=== PATIENT | male | born 1960 ===

== ENCOUNTER 2019-07-11 16:34 | Emergency (ER) | payer OTHER ==
--- NOTE | 2019-07-11 17:05 | ED ---
Complex/Multi-Sys Presentation - HPI Summary HPI Summary: Patient is a 59 y/o M presenting to the ED for a chief complaint of left anterior chest pain. The chest pain is described as a sharp sensation. Patient states that on 07/08/19 and 07/10/19, patient went outside to smoke a cigarette and had a syncopal episode. Patient fell during both syncopal episodes and currently has loose teeth, ecchymosis to the right hand, abrasions on the left forehead, left thigh pain, and left hip pain. He also reports fever, chills, nasal congestion, and shortness of breath. Initially, he believed he had a cold. Patient denies decreased ROM in the left LE, lightheadedness, dizziness, or headache. PMHx of COPD, DM, HTN, or cardiac problems are denied. Patient denies alcohol use, but admits to smoking 1 ppd of cigarettes. - History Of Current Complaint Chief Complaint: EDTraumaMultiple Hx Obtained From: Patient Onset/Duration: Sudden Onset, Still Present Timing: Constant Severity Currently: Moderate Severity Initially: Moderate Character: Sharp Associated Signs And Symptoms: Positive: Syncope, SOB, Chest Pain - Left anterior, Fever - In vitals, 97.7 F. Negative: Headache - Allergies/Home Medications Allergies/Adverse Reactions: Allergies Allergy/AdvReac Type Severity Reaction Status Date / Time No Known Allergies Allergy Verified 11/17/18 14:27 PMH/Surg Hx/FS Hx/Imm Hx Previously Healthy: Yes Endocrine/Hematology History: Denies: Hx Diabetes Cardiovascular History: Denies: Hx Hypertension, Hx Pacemaker/ICD History: Denies: Hx Renal Disease Sensory History: Denies: Hx Legally Blind, Hx Deafness, Hx Hearing Aid Opthamlomology History: Denies: Hx Legally Blind EENT History: Denies: Hx Deafness Psychiatric History: Denies: Hx Panic Disorder - Surgical History Surgical History: None Surgery Procedure, Year, and Place: DENIES Infectious Disease History: No Infectious Disease History: Denies: Traveled Outside the [place] in Last 30 Days - Family History Known Family History: Negative: Diabetes - Social History Occupation: Unemployed Alcohol Use: None Hx Substance Use: No Substance Use Type: Reports: None Hx Tobacco Use: Yes Smoking Status (MU): Heavy Every Day Tobacco Smoker Type: Cigarettes Amount Used/How Often: 1 ppd Review of Systems Positive: Fever - In vitals, 97.7 F, Chills Positive: Other - Positive nasal congestion and loose teeth Positive: Chest Pain - Left anterior Positive: Shortness Of Breath Positive: Arthralgia - Left hip, Myalgia - Left LE, left thigh, and left-sided facial pain. Negative: Decreased ROM - Left LE Positive: Bruising - Right hand, Other - Positive abrasions on the left forehead Neurological: Other - Negative lightheadedness or dizziness Positive: Syncope - 2 episodes, resolved. Negative: Headache All Other Systems Reviewed And Are Negative: Yes Physical Exam - Summary Physical Exam Summary: Constitutional: Well-developed, Well-nourished, Alert. (-) Distressed Skin: Warm, Dry HENT: Normocephalic. Several left-sided facial contusions, no bony tenderness, right upper front teeth slightly loose but not evulsed. Eyes: Conjunctiva normal Neck: Musculoskeletal ROM normal neck. (-) JVD, (-) Stridor, (-) Tracheal deviation Cardio: Rhythm regular, rate normal, Heart sounds normal; Intact distal pulses; The pedal pulses are 2+ and symmetric. Radial pulses are 2+ and symmetric. (-) Murmur Pulmonary/Chest wall: Effort normal. (-) Respiratory distress, (-) Wheezes, (-) Rales Abd: Soft, (-) tenderness, (-) Distension, (-) Guarding, (-) Rebound Musculoskeletal: (-) Edema. Left thigh tenderness, left lateral chest wall tenderness. Lymph: (-) Cervical adenopathy Neuro: Alert, Oriented x3 Psych: Mood and affect Normal Triage Information Reviewed: Yes Vital Signs On Initial Exam: Initial Vitals Temp Pulse Resp BP Pulse Ox 97.7 F 78 19 116/66 96 07/11/19 16:39 07/11/19 16:39 07/11/19 16:39 07/11/19 16:39 07/11/19 16:39 Vital Signs Reviewed: Yes - [place] Coma Scale Best Eye Response: 4 - Spontaneous Best Motor Response: 6 - Obeys Commands Best Verbal Response: 5 - Oriented Coma Scale Total: 15 Procedures - Sedation Patient Received Moderate/Deep Sedation with Procedure: No Diagnostics - Vital Signs Vital Signs Temp Pulse Resp BP Pulse Ox 07/11/19 16:39 97.7 F 78 19 116/66 96 - Laboratory Result Diagrams: 07/11/19 17:46 07/11/19 17:46 Lab Statement: Any lab studies that have been ordered have been reviewed, and results considered in the medical decision making process. - Radiology Femur X-ray Radiology Interpretation Completed By: ED Physician Summary of Radiographic Findings: Femur X-ray IMPRESSION: no acute disease. Reviewed and interpreted by Dr. Estes, pending official radiology report. - CT Brain CT CT Interpretation Completed By: Radiologist Summary of CT Findings: Brain CT IMPRESSION: 1. No intracranial bleed, suspicious mass, or mass effect. Ventricles appear unremarkable. 2. Left facial injuries not fully visualized here with some pre and postseptal gas seen over the left orbit. Facial bone CT is recommended. 3. Fluid in the left maxillary sinus. Mucoperiosteal thickening elsewhere in the sinuses. Reviewed by Dr. Estes. Cervical CT CT Interpretation Completed By: Radiologist Summary of CT Findings: Cervical Spine CT IMPRESSION: 1. No cervical fracture or subluxation. 2. Straightening of normal cervical lordosis. This can indicate muscle spasm, or be voluntary positioning. Reviewed by Dr. Estes. Chest CT CT Interpretation Completed By: Radiologist Summary of CT Findings: Brain CT IMPRESSION: 1. No intracranial bleed, suspicious mass, or mass effect. Ventricles appear unremarkable. 2. Left facial injuries not fully visualized here with some pre and postseptal gas seen over the left orbit. Facial bone CT is recommended. 3. Fluid in the left maxillary sinus. Mucoperiosteal thickening elsewhere in the sinuses. Reviewed by Dr. Estes. Maxillofacial CT CT Interpretation Completed By: Radiologist Summary of CT Findings: Maxillofacial CT IMPRESSION: 1. Acute fracture left orbital floor with large fragment displaced inferiorly 8 mm. The inferior rectus muscle protrudes inferiorly into the gap and may be functionally entrapped. 2. Preseptal soft tissue swelling and gas overlying the orbit. No postseptal hematoma or gas. 3. Associated blood in the left maxillary sinus. Minimal sinus disease elsewhere. Reviewed by Dr. Estes. Chest/Thorax CTA CT Interpretation Completed By: Radiologist Summary of CT Findings: Chest/Thorax CTA IMPRESSION: 1. No pulmonary embolus. No dissection or aneurysm in the chest. 2. Valvular and moderate coronary artery calcifications. 3. Minimal pericardial effusion. 4. Mild bronchial wall thickening. This may represent underlying inflammation or infection, or be chronic. 5. Slight buckle fractures anteriorly left 3rd 4th and 5th ribs are redemonstrated. 6. 5 mm pulmonary nodule anteriorly left upper lobe. 6 mm additional nodule laterally in the left upper lobe. 7. Severe atherosclerosis in the abdomen. No aneurysm. Reviewed by Dr. Estes. - EKG 16:52 Cardiac Rate: NL - 95 BPM EKG Rhythm: Sinus Rhythm ST Segment: Normal Ectopy: None Summary of EKG Findings: EKG at 16:52 shows normal sinus rhythm with 95 BPM, PVCs and PACs noted, no ischemic changes. Dr. Estes has reviewed and interpreted this EKG. Re-Evaluation - Re-Evaluation First Eval Re-Evaluation Time: 20:40 Change: Unchanged Comment: At 20:40, after discussion with the patient regarding admission, patient states he does not want to be admitted. Second Eval Re-Evaluation Time: 21:29 Change: Unchanged Comment: At 21:29, I discussed the benefits of admission; patient continues to decline admission Complex Multi-Symp Course/Dx Course Of Treatment: Patient is a 59 y/o M presenting to the ED for a chief complaint of left anterior chest pain. The chest pain is described as a sharp sensation. Patient states that on 07/08/19 and 07/10/19, patient went outside to smoke a cigarette and had a syncopal episode. Patient fell during both syncopal episodes and currently has loose teeth, ecchymosis to the right hand, abrasions on the left forehead, left thigh pain, and left hip pain. He also reports fever, chills, nasal congestion, and shortness of breath. Initially, he believed he had a cold. Patient denies decreased ROM in the left LE, lightheadedness, dizziness, or headache. PMHx of COPD, DM, HTN, or cardiac problems are denied. Patient denies alcohol use, but admits to smoking 1 ppd of cigarettes. On exam, several left-sided facial contusions, no bony tenderness, right upper front teeth slightly loose but not evulsed. Left thigh tenderness, left lateral chest wall tenderness. In the ED course, patient was given potassium chloride 40 meq PO, omnipaque 83 ml IV, and IV fluids. EKG at 16:52 shows normal sinus rhythm with 95 BPM, PVCs and PACs noted, no ischemic changes. Laboratory abnormal findings: Hct 41, MCH 32, sodium 133, chloride 98 , BUN 28, BUN/Creatinine ratio 26.2, calcium 8.5, troponin I 0.43. Brain CT IMPRESSION: 1. No intracranial bleed, suspicious mass, or mass effect. Ventricles appear unremarkable. 2. Left facial injuries not fully visualized here with some pre and postseptal gas seen over the left orbit. Facial bone CT is recommended. 3. Fluid in the left maxillary sinus. Mucoperiosteal thickening elsewhere in the sinuses. Chest CT IMPRESSION: 1. There are acute slight buckle fractures anteriorly of the left 3rd 4th and 5th ribs. No pneumothorax. 2. Limited atelectasis without consolidation, effusion or pulmonary edema. Minimal emphysematous change. 3. No other acute disease seen on nonenhanced study. As Above. Femur X-ray IMPRESSION: no acute disease. Cervical Spine CT IMPRESSION: 1. No cervical fracture or subluxation. 2. Straightening of normal cervical lordosis. This can indicate muscle spasm, or be voluntary positioning. Maxillofacial CT IMPRESSION: 1. Acute fracture left orbital floor with large fragment displaced inferiorly 8 mm. The inferior rectus muscle protrudes inferiorly into the gap and may be functionally entrapped. 2. Preseptal soft tissue swelling and gas overlying the orbit. No postseptal hematoma or gas. 3. Associated blood in the left maxillary sinus. Minimal sinus disease elsewhere. Chest/Thorax CTA IMPRESSION: 1. No pulmonary embolus. No dissection or aneurysm in the chest. 2. Valvular and moderate coronary artery calcifications. 3. Minimal pericardial effusion. 4. Mild bronchial wall thickening. This may represent underlying inflammation or infection, or be chronic. 5. Slight buckle fractures anteriorly left 3rd 4th and 5th ribs are redemonstrated. 6. 5 mm pulmonary nodule anteriorly left upper lobe. 6 mm additional nodule laterally in the left upper lobe. 7. Severe atherosclerosis in the abdomen. No aneurysm. At 18:35, Dr. Yoly Dockery agrees to admit the patient to [facility] with a diagnosis of elevated troponin, syncope, PVCs, multiple rib fractures, facial contusions, and left orbital floor fracture. At 20:40, after discussion with the patient regarding admission , patient states he does not want to be admitted. At 21:29, I discussed the benefits of admission; patient continues to decline admission. Patient will be leaving AMA with a diagnosis of elevated troponin, syncope, PVCs, multiple rib fractures, facial contusions, and left orbital floor fracture. - Diagnoses Provider Diagnoses: Facial contusion, Elevated troponin, Syncope, PVCs (premature ventricular contractions), Multiple rib fractures, Fracture of left orbital floor - Physician Notifications Discussed Care Of Patient With: Yoly Dockery - At 18:35, Dr. Yoly Dockery agrees to admit the patient to [facility] with a diagnosis of elevated troponin, syncope, PVCs, multiple rib fractures, left orbital floor fracture, and facial contusions. Time Discussed With Above Provider: 18:35 Instructed by Provider To: Admit As Inpatient Discharge ED - Sign-Out/Discharge Documenting (check all that apply): Patient Departure - AMA - Discharge Plan Condition: Stable Disposition: AGAINST MEDICAL ADVICE Prescriptions: Amoxicillin/Clavulanate TAB* [Augmentin TAB 875*] 875 mg PO BID 7 Days #14 tab Lidocaine PATCH 5%* [Lidoderm 5% Patch*] 1 patch TRANSDERM DAILY #14 patch Patient Education Materials: Facial Fracture (ED), Rib Fracture (ED), Syncope ( ED) Referrals: [facility] [Outside] Dianne Richardson MD [Medical Doctor] - Zak Pressley MD [Medical Doctor] - Additional Instructions: RETURN TO THE EMERGENCY DEPARTMENT FOR CHANGING OR WORSENING SYMPTOMS. Follow up with facial trauma, cardiology, and [facility] in 1-3 days. - Billing Disposition and Condition Condition: STABLE Disposition: Against Medical Advice - Attestation Statements Document Initiated by Scribe: Yes Documenting Scribe: Kendy Price Provider For Whom Scribe is Documenting (Include Credential): Shane Etses DO Scribe Attestation: Kendy Jacinto scribed for Shane Estes DO on 07/13/19 at 0943. Scribe Documentation Reviewed: Yes Provider Attestation: The documentation as recorded by the Kendy casey accurately reflects the service I personally performed and the decisions made by Shane gomez DO Status of Scribe Document: Viewed
[2019-07-11] MEDS ORDERED: NS 0.9% 1000 ML** 1,000 ML IV ONE ×2 (17:06→19:30)
[2019-07-11 17:53] LABS: ABS Lymphocytes 1.3 10^3/ul (1.0-4.8); ABS Monocytes 0.7 10^3/ul (0-0.8); ABS Neutrophils 4.3 10^3/ul (1.5-7.7); Eosinophil % 0.3 %; Hematocrit 41 % (42-52); Hemoglobin 14.4 g/dL (14.0-18.0); Lymphocyte % 20.5 %; Mean Corpuscular HGB Conc 35 g/dL (31-36); Mean Corpuscular Hemoglobin 32 pg (27-31); Mean Corpuscular Volume 90 fL (80-94); Mean Platelet Volume 8.6 fL (7.4-10.4); Nucleated Red Blood Cells % 0.1; Platelet Count 160 10^3/uL (150-450); Red Blood Count 4.53 10^6 /uL (4.18-5.48); Red Cell Distribution Width 15 % (10-15); White Blood Count 6.4 10^3/uL (3.5-10.8)
[2019-07-11 18:09] LABS: ALT 18 U/L (7-52); AST 24 U/L (13-39); Albumin 3.6 g/dL (3.2-5.2); Albumin/Globulin Ratio 1.2 (1-3); Alkaline Phosphatase 62 U/L (34-104); Anion Gap 9 mmol/L (2-11); BUN/Creatinine Ratio 26.2 (8-20); Blood Urea Nitrogen 28 mg/dL (6-24); CO2 Carbon Dioxide 26 mmol/L (22-32); Calcium 8.5 mg/dL (8.6-10.3); Chloride 98 mmol/L (101-111); EGFR African American 85.3 (>60); EGFR Non-African American 70.5 (>60); Glucose 100 mg/dL (70-100); Magnesium 2.1 mg/dL (1.9-2.7); Potassium 3.5 mmol/L (3.5-5.0); Sodium 133 mmol/L (135-145); Total Protein 6.6 g/dL (6.4-8.9)
[2019-07-11 18:16] LABS: Troponin I 0.43 ng/mL (<0.03)
[2019-07-11] MEDS ORDERED: Potassium Chlor TAB* 20 MEQ TAB.ER PO ONE (18:27)
[2019-07-11 18:32] LABS: TSH (Thyroid Stimulating Horm) 3.07 mcIU/mL (0.34-5.60)
[2019-07-11 19:15] LABS: Activated Partial Thrombo Time 30.5 seconds (26.0-38.0); INR 1.06 (0.82-1.09)
[2019-07-11 20:24] LABS: Troponin I 0.32 ng/mL (<0.03)
[2019-07-11 20:34] VITALS: BP 156/92
[2019-07-11] MEDS ORDERED: Iohexol 350* (CONTRAST) 500 ML MDV IV ONE (21:04)
[2019-07-11] MEDS ORDERED: Aspirin TAB* 325 MG PO ONE (22:01)
[2019-07-11] MEDS ORDERED: Aspirin 81 mg CHEW TAB* 81 MG TAB.CHEW ONE (22:06)
[2019-07-11] MEDS ORDERED: Aspirin 81 mg CHEW TAB* 81 MG TAB.CHEW PO ONE (22:07)
--- NOTE | 2019-07-12 12:37 | CONS ---
CONSULTATION REPORT: DATE OF CONSULT: 07/11/19 - EMERGENCY DEPT CONSULTING PROVIDER: Kendall Spears MD. REFERRING SERVICE: Dr. Shane Estes of Emergency Medicine. REASON FOR CONSULT: The patient was referred to admission given his multiple medical problems. CHIEF COMPLAINT: Syncope x2, left face pain, left leg pain, shortness of breath , sharp left chest pain. HISTORY OF PRESENT ILLNESS: Daron Head is a 59-year-old male originally from [place] with past medical history of longstanding smoking. He had developed some fevers and chills on 07/07/19 in the afternoon. The next day on 07/08/19, three days prior to consultation, he went out for a smoke, he felt a estrada to his head, fell over and hit his head against a rock. The very next day , 07/09/19, two days prior to consultation, the exact same circumstances happened again where he also syncopized when smoking. He developed a sharp left -sided chest pain and presented to [facility] Emergency Room. His initial troponin was 0.43 and EKG demonstrated some Q3T3 with some concern for need to rule out pulmonary embolism especially given his 2 episodes of syncope and his sharp left -sided chest pain. Given his facial trauma, he got a CT of the head noncontrast , which demonstrated no intracranial bleed, suspicious mass, or mass effect. The left facial injuries were not fully visualized but there was some concern for pre and postseptal gas seen over the left orbit. A facial bone CT was recommended. There was fluid in the left maxillary sinus, mucoperiosteal thickening elsewhere in the sinuses. A cervical spine CT demonstrated no cervical fracture or subluxation. Straightening of the normal cervical lordosis indicating muscle spasm or voluntary posturing. CT of the chest noncontrast demonstrated acute slight buckle fractures anteriorly of the left third, fourth, and fifth ribs; no pneumothorax; limited atelectasis without consolidation, effusion, or pulmonary edema; minimal emphysematous change. He was referred to hospitalist service for admission; however, upon my walking in the room, this was news to him and he adamantly denies that this was even a possibility for him given his noninsurance status. He does not feel like he could afford it. It was explained to him that given his elevated troponin and need to rule out pulmonary embolism that he would be at risk for leaving against medical advice without further workup. He also is pending for the left facial CT. I relayed his concerns to Dr. Estes of the Emergency Medicine. In the interim, his CT angiogram of the chest demonstrated no pulmonary embolism , no dissection or aneurysm of the chest. There was mild bronchial wall thickening. Again, the anterior left third, fourth, and fifth buckle fractures. A 5 mm pulmonary nodule anteriorly in the left upper lobe and 6 mm additional nodule laterally in the left upper lobe. Severe atherosclerosis in the abdomen, no aneurysm. Doubt very moderate coronary artery calcifications and then minimal pericardial effusion. Maxillofacial CT demonstrated acute fracture of the left orbital floor with a large fragment displaced inferiorly 8 mm. The inferior rectus muscle protrudes inferiorly into the gap and may be functionally entrapped. Preseptal soft tissue swelling and gas overlying the orbit. No postseptal hematoma or gas. There was associated fluid in the left maxillary sinus. Minimal sinus disease elsewhere. PAST MEDICAL HISTORY: He denies. He is a current smoker of what he says is probably about 55-pack years. MEDICATIONS: Again denies any other than occasional: 1. Aleve. 2. Benadryl. 3. Aspirin. ALLERGIES: No known drug allergies. FAMILY HISTORY: His father of ALS in his early 60s. Mother in her early 70s. He has 3 brothers and 1 sister. SOCIAL HISTORY: The patient is a 55-year 1 pack per day smoker. Denies alcohol use currently and for the last 20 years. 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 Of note, he plans to travel down to [place] in August. REVIEW OF SYSTEMS: A complete 14-point review of systems negative except as per HPI. PHYSICAL EXAM: General Appearance: No acute distress, but with some facial trauma. Vital Signs: Temperature 97.7, pulse rate initially 102, respiratory rate 19, satting 96% on room air, blood pressure 116/66. HEENT: Normocephalic. There are lacerations and some swelling and ecchymosis near his left eye and cheek. Neck: Supple. Lungs: Clear to auscultation bilaterally with no wheezing, rales, or rhonchi. Cardiovascular: Regular rate and rhythm. No murmurs, rubs, or gallops. Abdomen: Soft, nontender, nondistended. Extremities: Warm, well perfused. No peripheral edema. Skin: Ecchymoses as above. DIAGNOSTIC STUDIES/LAB DATA: White count 6.4, hemoglobin 14.4, hematocrit 41, platelets 160. INR 1.06, D-dimer 731. Sodium 133, potassium 3.5, chloride 98, carbon dioxide is 26, BUN 28, creatinine 1.07, glucose 100, lactic acid 1.3, magnesium 2.1. AST 24, ALT 18, alk phos 62. Troponin 0.43 and repeat of 0.32, BNP 48. Albumin 3.6. TSH 3.07. Imaging: As above. Given his facial trauma, he got a CT of the head noncontrast, which demonstrated no intracranial bleed, suspicious mass or mass effect. The left facial injuries were not fully visualized where there was some concern for pre and postseptal gas seen over the left orbit and facial bone CT was recommended. There was fluid in the left maxillary sinus, mucoperiosteal thickening elsewhere in the sinuses. A cervical spine CT demonstrated no cervical fracture or subluxation. Straightening of the normal cervical lordosis indicating muscle spasm or be voluntary posturing. CT of the chest noncontrast demonstrated acute slight buckle fractures anteriorly of the left third, fourth and fifth ribs; no pneumothorax; limited atelectasis without consolidation, effusion, or pulmonary edema; minimal emphysematous change. His CT angiogram of the chest demonstrated no pulmonary embolism, no dissection or aneurysm of the chest. There was mild bronchial wall thickening. Again, the anterior left third, fourth and fifth buckle fractures. A 5 mm pulmonary nodule anteriorly in the left upper lobe and 6 mm additional nodule laterally in the left upper lobe. Severe atherosclerosis in the abdomen, no aneurysm. Doubt very moderate coronary artery calcifications and then minimal pericardial effusion. Maxillofacial CT demonstrated acute fracture of the left orbital floor with large fragment displaced inferiorly 8 mm. The inferior rectus muscle protrudes inferiorly into the gap and may be functionally entrapped. Preseptal soft tissue swelling and gas overlying the orbit. No postseptal hematoma or gas. There was associated fluid in the left maxillary sinus. Minimal sinus disease elsewhere. EKG demonstrated sinus tachycardia with PVCs and Q3, T-wave inversion in III. No ST elevations or depressions. Normal axis. Nonspecific intraventricular conduction delay with QRS of 118. ASSESSMENT AND PLAN: Daron Head is a 59-year-old male with a limited medical history other than long-time smoking and what sounds like avoidance of medical care. He presents with 2 [id number] syncopal episodes resulting in facial trauma while smoking. These were preceded by vague sensations of rushing into his face. He has elevated troponin initially 0.43 and some evidence of possible right heart strain on EKG suggestive of need to rule out a pulmonary embolism. He has since done that with a CTA, which showed no pulmonary embolism but other changes as above. Even before the study, he had strenuously denied that admission would be even a consideration for him and he does have the capacity to make this decision as the risks and benefits were explained. He eventually would leave against medical advice from the emergency room. Of note, concerning is the inferior orbital wall fracture with possible concern for lateral rectus entrapment. He should follow up with either Plastic Surgery or irrigation equipment installer as an outpatient if he decides not to stay and this possibly could need surgical intervention to prevent further complications. Given the orbital wall fracture, I do recommend oral antibiotics and plastic surgery followup. [id number]/[facility] #: [id number] RONY
== END 2019-07-11 22:15 | disposition left against medical advice (07) ==
LOC: ED 16:34
DX: S02.32XA Fracture of orbital floor, left side, initial encounter for closed fracture (principal); S22.42XA Multiple fractures of ribs, left side, initial encounter for closed fracture; S00.83XA Contusion of other part of head, initial encounter; I49.3 Ventricular premature depolarization; R55 Syncope and collapse; R79.89 Other specified abnormal findings of blood chemistry; W18.30XA Fall on same level, unspecified, initial encounter; Y92.9 Unspecified place or not applicable; F17.210 Nicotine dependence, cigarettes, uncomplicated; K44.9 Diaphragmatic hernia without obstruction or gangrene; R91.8 Other nonspecific abnormal finding of lung field; K80.20 Calculus of gallbladder without cholecystitis without obstruction; I70.90 Unspecified atherosclerosis
CPT/HCPCS: 36415; 70450; 70486; 71250; 71275; 72125; 80053; 83605; 83735; 83880; 84443; 84484; 85025; 85379; 85610; 85730; 93005; 96360; 96361; 99283; A9270-GY; Q9967